=== PATIENT | female | born 2000 | race African-American/Black ===

== ENCOUNTER 2023-06-13 08:08 | Outpatient (AMB) | payer OTHER, SELFPAY ==
--- NOTE | 2023-06-13 08:10 | MHC.OFFVIS ---
Intake Vital Signs 06/13/23 08:18 Height 6 ft 4 in Weight 168 lb 8 oz BMI 20.5 BP 110/72 Blood Pressure Location Rt brachial Position Sitting Pulse 67 Pulse Source Pulse Oximeter Pulse Oximetry (%) 100 Intake Visit Reasons: [id number] Headache-CONF Intake Note: Elle presents for headahes. I get a lot of headaches,i have headches non stop every day. Allergies No Known Allergies Allergy (Verified 06/13/23 08:19) Medication List - Last Reconciled 06/13/23 by Cris Hough, OPERATIONS CLERK sumatriptan succinate 50 mg PO HPI HPI Comments History of Present Illness Details Right-handed 22-yr-old male presents for new pt evaluation of headache disorder. Pt reports he did have sporadic headaches when younger, however he has had constant different headache for at least 6 yrs, which started w/o known cause. He states he woke up one day w/ a constant headache and it just never subsided. He does not recall the date or what he did just prior to the onset. The headaches have been worsening overtime. Pt also endorses:? History of concussion in 2018- w/o residual s/s, GERD, Leg Cramps- sometimes, occasional orthostatic lightheadedness, bilateral tinnitus- sounds/voices. Pertinent denials include: Dizziness, vision changes, diplopia, Musculoskeletal disorders or injury, , Mood d/o, Sleep d/o Respiratory d/o, CV disease Clotting or hematology d/o, Endocrine or metabolic d/o, History of seizure, syncope, or drop attacks , Constipation, Family history of migraine or other headache disorder Headache questionnaire:? Age/time of onset: 16 yo Preceding causes: None Previous work-up: Brain MRI w/wo, 01/2023- normal Typical headache characteristics: Prodrome symptoms: Unsure Aura: Denies Pain intensity: Severe- varies in intensity Location, quality, characteristics: Pressure in crown of head Associated symptoms? Phonophobia, nausea, cognitive difficulties, sometimes activity intolerance, sometimes restless Postdrome: Unsure Triggers: Stress, arguing Positional trigger: occasional headache upon standing, Valsalva trigger: denies. Exertional trigger:denies, Sexual activity trigger: Denies Time of day: No specific time of day Duration and Frequency: Constant How does headache impact your life? Not missing work. Can make it difficult to do his activities. Current acute medication use/interventions: Ibuprofen- 2 tabs prn (taking twice a week), Sumatriptan 50mg- sometimes works. Current preventative medication use: None Non-pharmacological interventions: None Lifestyle considerations: Sleep routine: Bedtime: 10pm-1am, Wake-up time: Varies Sleep difficulties: Denies. Can have Leg Cramps- night or the day Caffeine use: Occasional tea 1 cup in am Substance use: Alcohol- 1/2 glass of Whiskey socially Exercise:?push-ups, sit-ups. Employment:?Works in [employer] Family planning: none [facility] Social History (Updated 06/13/23 @ 08:20 by JESSICA Galan) Alcohol intake: current Patient Tobacco Use Status: Never used Tobacco Physical Exam Vital Signs: Last Vital Signs Pulse 67 06/13/23 08:18 BP 110/72 06/13/23 08:18 Pulse Ox 100 06/13/23 08:18 BMI result Body Mass Index 20.5 Const Orientation/consciousness: patient oriented x3 HEENT Other: No palpable scalp tenderness. Head: Yes normocephalic Resp Effort & Inspection: normal respiratory effort and able to speak in complete sentences Neuro General: patient oriented x3 Cranial nerves: Yes CN's II-XII intact bilaterally (w/ exception of difficulty tracking EOM in all martini) Cognition (Neuro): normal cognition Gait exam (Neuro): Normal gait present Motor exam (neuro): 5/5 motor strength present throughout Deep tendon reflexes (DTR's): Right triceps reflex intensity grade: 2+, Left triceps reflex intensity grade: 2+, Rt Biceps (C5, C6): 2+, Left biceps reflex intensity grade: 2+, Right brachioradialis reflex intensity grade: 2+, Left brachioradialis reflex intensity grade: 2+, Right patellar reflex intensity grade: 2+ and Left patellar reflex intensity grade: 2+ Coordination: [id number] test normal, tandem gait normal and Romberg test negative Pupils: Normal pupillary reactivity/response: bilateral Psych Appearance: grossly normal Mental Status: mental status grossly normal Speech and movement: Normal speech and movement present Affect: normal affect Attitude: cooperative Thought process: Normal thought process present Assessment & Plan Assessment & Plan (1) Migraine without aura: Code(s): G43.009 - Migraine without aura, not intractable, without status migrainosus (2) Orthostatic lightheadedness: Code(s): R42 - Dizziness and giddiness Plan For overall headache management: Optimize good self-care, including but not limited to maintaining a healthy diet, adequate fluid intake, adequate sleep, and engaging in regular physical activity. For headache triggers: Track headaches, especially after any treatment regimen changes. Dr [employer] is one of many headache tracking apps. For orthostatic lightheadedness: Increase fluids, including electrolyte replacement beverages. For acute headache treatment: Discussed importance of taking acute medications at the first sign of headache, however stressed importance of avoiding acute medication overuse (especially with combined headache medications). Increase sumatriptan from 50 to 100mg prn, may repeat in 2 hours. Max 200 mg per day. May adjunct with Tylenol or an NSAID. Reviewed potential adverse effects of triptans, including but not limited to nausea, fatigue, chest tightness/tingling (usually passes within a few minutes), medication overuse headaches. Previous acute migraine medication trials: Sumatriptan 50 mg- not always effective. Acute migraine medication contraindications: None at this time For headache prevention medication: Discussed that preventative medications should be taken routinely as prescribed for best effect, it may take several weeks for full effect to take effect. Start Riboflavin 400mg qam Start Magnesium 400mg qhs Previous migraine prevention medication trials: None Migraine prevention medication contraindications: None at this time Pt to follow-up in 3 months or sooner prn. Medications: New magnesium oxide may hold for loose stools 400 mg PO BEDTIME 30 tabs 6RF 30 days riboflavin (vitamin B2) 400 mg PO DAILY 30 tabs 6RF 30 days sumatriptan succinate 50 - 100 mg orally at onset of headache, may repeat in 2 hrs PRN; max 2 tabs per day or 4 tabs/week (may take with Ibuprofen) 12 tabs 6RF migraine headache 30 days Coding Level of Care Code New Pt Level 4 (88099) Diagnoses Migraine without aura G43.009 Orthostatic lightheadedness R42
[2023-06-13 08:18] VITALS: BP 110/72; PULSE 67; O2SAT 100; BMI 20.5
== END 2023-06-13 09:30 | disposition home or self-care (01) ==
PROVIDERS: PCP Internal Medicine; Visit Provider Nurse Practitioner Family
DX: G43.009 Migraine without aura, not intractable, without status migrainosus (principal); R42 Dizziness and giddiness
CPT/HCPCS: 99204

== ENCOUNTER → 2023-06-13 08:08 | Outpatient (BNVA) | payer OTHER, SELFPAY | PROVIDERS: PCP Internal Medicine; Visit Provider Nurse Practitioner Family ==

== ENCOUNTER 2023-12-10 07:33 | Outpatient (AMB) | payer OTHER, SELFPAY ==
--- NOTE | 2023-12-10 07:33 | MHC.OFFVIS ---
Intake Visit Reasons: Follow Up Intake Note: Pt presents for follow up of migraines via telehealth. He reports migraines have worsened since last visit. 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 Pt denies any significant interval medical changes. Pt reports he continues to have an every day headache, especially in the morning he is having a heavy headache. The B2 and the Mag did not help- so he stopped. The Sumatriptan helped only a little, but he did wait to take it until the headache was very strong. He does still endorse orthostatic lightheadedness. Drinks a lot of water. He does work nights at [employer]. He does not endorse snoring. He does endorse daytime sleepiness at times- typically if he has not slept well. Denies neck pain. Baseline headache history: Age/time of onset: 16 yo Preceding causes: None Previous work-up: Brain MRI w/wo, 01/2023- normal Typical headache characteristics: Initial HPI 06/13/2023: Pt reports he did have sporadic headaches when younger, however he has had constant different headache for at least 6 yrs, which started w/o known cause. He states he woke up one day (does not recall the specific date or preceding activities) w/ a constant headache and it just never subsided and has gradually worsened overtime. Prodrome symptoms: Unsure Aura: Denies Headache characteristics: Severe (though intensity varies) pressure in crown of head a/w phonophobia, nausea, cognitive difficulties, sometimes activity intolerance, sometimes restlessness. Postdrome: Unsure Triggers: Stress, arguing Positional trigger: occasional headache upon standing, Valsalva trigger: denies. Exertional trigger:denies, Sexual activity trigger: Denies Time of day: No specific time of day Duration and Frequency: Constant How does headache impact your life: Not missing work. Can make it difficult to do his activities. PFSH Social History Alcohol intake: current Patient Tobacco Use Status: Never used Tobacco Physical Exam Const General: cooperative and no acute distress Orientation/consciousness: patient oriented x3 Resp Effort & Inspection: normal respiratory effort and able to speak in complete sentences Neuro General: patient oriented x3 Cognition (Neuro): normal cognition Psych Appearance: grossly normal Mental Status: mental status grossly normal Speech and movement: Normal speech and movement present Affect: normal affect Attitude: cooperative Telehealth Telehealth Telehealth Platform: [employer] Location of provider rendering services: practice address Location of patient: address on file Patient Identification confirmed using: Name, : Yes Telehealth method: video Patient verbally consented to treatment: Yes Patient verbally consented to billing insurance company: Yes Patient informed of any privacy concerns related to visit: Yes Minutes spent on Phone/Video with Pt.: 24 Assessment & Plan Assessment & Plan (1) Migraine without aura: Code(s): G43.009 - Migraine without aura, not intractable, without status migrainosus Category: Medical (2) Orthostatic lightheadedness: Code(s): R42 - Dizziness and giddiness Category: Medical Plan For overall headache management: Optimize good self-care, including but not limited to maintaining a healthy diet, adequate fluid intake, adequate sleep, and engaging in regular physical activity. Track headaches. Future considerations: HST For orthostatic lightheadedness: Increase fluids, including electrolyte replacement beverages. For acute headache treatment: Discussed importance of taking acute medications at the first sign of headache, however stressed importance of avoiding acute medication overuse (especially with combined headache medications). Stop sumatriptan from 50 to 100mg prn- not fully effective. Trial Rizatriptan 10mg tab, 1/2 - 1 tab (5-10mg) at onset of headache, may repeat in 2 hours. Max of 2 tabs (200mg) per 24 hours. May adjunct with OTC Tylenol 650mg every 4 hours, Ibuprofen (liquigel) 600mg every 6 hours, or Naproxen (liquigel) 440mg every 12 hrs as needed. Potential adverse effects of triptans, include but are not limited to nausea, fatigue, chest tightness/tingling (usually passes within a few minutes), medication overuse headaches. Previous acute migraine medication trials: Sumatriptan 50-100 mg- not fully effective. Acute migraine medication contraindications: None at this time For headache prevention medication: Discussed that preventative medications should be taken routinely as prescribed for best effect, it may take several weeks for full effect to take effect. Stop Riboflavin 400mg qam- ineffective Stop Magnesium 400mg qhs-ineffective Trial Topiramate 25-50mg at bedtime. Potential adverse effects of Topiramate, include but are not limited to fatigue, cognitive changes, paresthesias (tingling), vision changes, kidney stones. Previous migraine prevention medication trials: Mag and B2- ineffective Migraine prevention medication contraindications: Beta-blockers d/t orthostatic lightheadedness/hypotension Future considerations: CGRP MaB Pt to follow-up in 3 months or sooner prn. Medications: New topiramate 25 - 50 mg (1 - 2 x 25 mg) PO BEDTIME 30 days 60 tabs 3RF rizatriptan max 2 tabs per day or 4 tabs per week 5 - 10 mg (0.5 - 1 x 10 mg) PO Q2H 30 days PRN 12 tabs 3RF migraine headache Discontinued magnesium oxide may hold for loose stools Discontinued Reason: Patient no longer taking 400 mg PO BEDTIME 30 days 30 tabs 6RF riboflavin (vitamin B2) Discontinued Reason: Patient no longer taking 400 mg PO DAILY 30 days 30 tabs 6RF sumatriptan succinate Discontinued Reason: Patient no longer taking (0.5 - 1 x 100 mg) 50 - 100 mg orally at onset of headache, may repeat in 2 hrs PRN; max 2 tabs per day or 4 tabs/week (may take with Ibuprofen) 30 days 12 tabs 6RF migraine headache Coding Level of Care Code Tele Est Pt Level 4 (04464) Diagnoses Migraine without aura G43.009 Orthostatic lightheadedness R42
== END 2023-12-10 10:11 | disposition home or self-care (01) ==
LOC: HO.HSMS 07:33
PROVIDERS: PCP Internal Medicine; Visit Provider Nurse Practitioner Family
DX: G43.009 Migraine without aura, not intractable, without status migrainosus (principal); R42 Dizziness and giddiness
CPT/HCPCS: 99214

== ENCOUNTER → 2023-12-10 07:33 | Outpatient (BNVA) | payer OTHER, SELFPAY | PROVIDERS: PCP Internal Medicine; Visit Provider Nurse Practitioner Family ==